=== PATIENT | male | born 1985 | race Caucasian/White ===

== ENCOUNTER 2017-04-27 22:50 | Inpatient (IN) | payer SELFPAY ==
[~2017-04-27] VITALS: Ht 162.6 cm; Wt 169.6 kg
[2017-04-28] MEDS ORDERED: SODIUM CHLORIDE 0.9% 1,000 ML IV ONE (00:45)
[2017-04-28] MEDS ORDERED: ONDANSETRON HCL 4MG/2ML VIAL IV ONE (00:45)
[2017-04-28] MEDS ORDERED: MORPHINE SULFATE 4 MG/ML CPJ (NOT FOR IM USE) IV ONE (00:45)
[2017-04-28] MEDS ORDERED: KETOROLAC 30MG/ML VIAL IV ONE (00:45)
[2017-04-28 00:58] LABS: CLARITY URINE CLEAR (CLEAR); COLOR URINE YELLOW (YELLOW); KETONES URINE NEGATIVE (NEGATIVE); LEUKOCYTE ESTERASE URINE NEGATIVE (NEGATIVE); NITRITE URINE NEGATIVE (NEGATIVE); OCCULT BLOOD URINE 1+ (NEGATIVE); PH URINE 5.5 (4.5-8.0); PROTEIN URINE NEGATIVE (NEGATIVE); SPECIFIC GRAVITY URINE 1.016 (1.005-1.030)
[2017-04-28 01:42] LABS: HEMATOCRIT. 37.6 % (42.0-52.0); MEAN CORPUSCULAR VOLUME 78.3 fL (80.0-94.0); MEAN PLATELET VOLUME 8.7 fl (7.4-10.4); PLATELET 251 x1000/uL (130-400); RED CELL DISTRIBUTION WIDTH 15.9 % (11.6-14.6)
[2017-04-28 01:47] LABS: CHLORIDE 103 mEq/L (98-107)
[2017-04-28 01:52] LABS: CARBON DIOXIDE 29 mEq/L (21-32)
[2017-04-28 02:12] LABS: BASOPHILS % 0.3 % (0.0-2.0); EOSINOPHILS % 1.9 % (0.0-5.0); LYMPHOCYTES % 14.8 % (20.0-50.0); MONOCYTES % 7.1 % (2.0-8.0); NEUTROPHILS % 75.9 % (40.0-76.0); PLATELET ESTIMATE NORMAL
[2017-04-28] MEDS ORDERED: KETOROLAC 15MG/ML VIAL IV ONE (03:45)
[2017-04-28] MEDS ORDERED: GUAIFENESIN 200MG/10ML SUGAR FREE UDC PO PRN (09:00)
[2017-04-28] MEDS ORDERED: ACETAMINOPHEN 325MG TABLET PO PRN (09:00)
[2017-04-28] MEDS ORDERED: DOCUSATE SODIUM 100MG CAPSULE PO PRN (09:00)
[2017-04-28] MEDS ORDERED: DIPHENHYDRAMINE 50MG/ML VIAL IV PRN (09:00)
[2017-04-28] MEDS ORDERED: HYDROCODONE/APAP 7.5/325MG 1 TAB TABLET PO PRN (09:00)
[2017-04-28] MEDS ORDERED: LORAZEPAM 0.5MG TABLET PO PRN (09:00)
[2017-04-28] MEDS ORDERED: MAGNESIUM/ALUMINUM HYDROXIDE/SIMETHICONE 30ML UDC PO PRN (09:00)
[2017-04-28] MEDS ORDERED: NA PHOS,M-B/NA PHOS,DI-BA ENEMA 118ML PR PRN (09:00)
[2017-04-28] MEDS ORDERED: ONDANSETRON HCL 4MG/2ML VIAL IV PRN (09:00)
[2017-04-28] MEDS ORDERED: IPRATROPIUM/ALBUTEROL 0.5-3(2.5)MG/3ML NEB INH PRN (09:00)
[2017-04-28] MEDS ORDERED: CLONIDINE 0.1MG TABLET PO PRN (09:00)
[2017-04-28 09:15] VITALS: BP 110/71
[2017-04-28 09:30] VITALS: BP 110/71
[2017-04-28] MEDS: SODIUM CHLORIDE 0.45% 1,000 ML IV SCH ×2 (10:25→20:52)
[2017-04-28] MEDS: MORPHINE SULFATE 2 MG/ML CPJ (NOT FOR IM USE) IV PRN ×3 (10:26→20:29)
[2017-04-28 12:00] VITALS: BP 105/66
[2017-04-28 16:00] VITALS: BP 104/67
[2017-04-28 20:00] VITALS: BP 114/55
[2017-04-29] VITALS: BP 134/82
[2017-04-29] MEDS: MORPHINE SULFATE 2 MG/ML CPJ (NOT FOR IM USE) IV PRN (02:56)
[2017-04-29 04:00] VITALS: BP 118/65
[2017-04-29] MEDS: SODIUM CHLORIDE 0.45% 1,000 ML IV SCH (06:24)
[2017-04-29 07:52] LABS: BASOPHILS % 0.5 % (0.0-2.0); EOSINOPHILS % 2.3 % (0.0-5.0); HEMATOCRIT. 37.4 % (42.0-52.0); MEAN CORPUSCULAR HEMOGLOBIN 25.7 pg (28.0-32.0); MONOCYTES % 9.2 % (2.0-8.0); PLATELET 249 x1000/uL (130-400); RED BLOOD CELL COUNT 4.68 mill/uL (4.7-6.1); RED CELL DISTRIBUTION WIDTH 16.1 % (11.6-14.6)
[2017-04-29 08:24] LABS: CARBON DIOXIDE 31 mEq/L (21-32); CHLORIDE 102 mEq/L (98-107); HDL CHOLESTEROL 46 mg/dL (40-59); LDL CHOLESTEROL 105 mg/dL (5-100)
[2017-04-29 09:33] VITALS: BP 113/68
== END 2017-04-29 10:40 | disposition home or self-care (01) | DRG 465 ==
LOC: ER 22:50 → 6EST 04-28 05:11 → ENRESERV 04-28 06:50
PROVIDERS: ADMIT Internal Medicine; ATTEND Internal Medicine
DX: N13.2 Hydronephrosis with renal and ureteral calculous obstruction (principal); Z68.44 Body mass index [BMI] 60.0-69.9, adult; N39.0 Urinary tract infection, site not specified; E66.01 Morbid (severe) obesity due to excess calories; E86.0 Dehydration; N20.0 Calculus of kidney; Z87.442 Personal history of urinary calculi
CPT/HCPCS: 36415; 74176; 80048; 80053; 80061; 81001; 85025; 96361; 96374; 96375; 96376; 99285; J1885; J2270; J2405; J7030